=== PATIENT | female | born 1955 | race Caucasian/White ===

== ENCOUNTER 2017-11-26 08:27 | Outpatient (CLI) | payer MEDICARE, MEDICAID ==
[~2017-11-26 08:27] MED LIST: NICO-687 TD; POTA20TA19 PO; SERT25TA PO
[2017-11-26] MEDS ORDERED: iohexol 300mg/ml 100ml inj. ONE (08:40)
== END 2017-11-26 23:59 | disposition home or self-care (01) ==
LOC: 64 CT 08:27
PROVIDERS: ATTEND Surgery
DX: R18.8 Other ascites (principal); M48.54XD Collapsed vertebra, not elsewhere classified, thoracic region, subsequent encounter for fracture with routine healing; M51.37 Other intervertebral disc degeneration, lumbosacral region; M48.07 Spinal stenosis, lumbosacral region; I10 Essential (primary) hypertension; Z90.49 Acquired absence of other specified parts of digestive tract; Z90.710 Acquired absence of both cervix and uterus; Z87.891 Personal history of nicotine dependence
CPT/HCPCS: 74177; J7030; Q9967

== ENCOUNTER 2017-12-11 06:31 | Day surgery (SDC) | payer MEDICARE, MEDICAID ==
[~2017-12-11] VITALS: Ht 162.6 cm; Wt 68.1 kg
[2017-12-11 06:54] VITALS: BP 157/90
[2017-12-11] MEDS ORDERED: METR500T PO (07:03)
[2017-12-11] MEDS ORDERED: SERT25TA PO (07:03)
[2017-12-11] MEDS ORDERED: SIMV20TA5 PO (07:03)
[2017-12-11] MEDS ORDERED: LEVO25TA2 PO (07:03)
[2017-12-11] MEDS ORDERED: LIDOcaine 1%/PF 5ML 10 MG/ML VIAL IJ ONE (07:10)
[2017-12-11] MEDS ORDERED: LIDOcaine 1% (10mg/ml)w/preservative injection 20ml MDV SQ ONE (07:25)
[2017-12-11 09:00] VITALS: BP 136/84
== END 2017-12-11 09:12 | disposition home or self-care (01) ==
LOC: SSTAY O 06:31
PROVIDERS: ATTEND Radiology Diagnostic Radiology
DX: L76.34 Postprocedural seroma of skin and subcutaneous tissue following other procedure (principal); Y83.8 Other surgical procedures as the cause of abnormal reaction of the patient, or of later complication, without mention of misadventure at the time of the procedure; E03.9 Hypothyroidism, unspecified; E78.5 Hyperlipidemia, unspecified; I10 Essential (primary) hypertension; M19.90 Unspecified osteoarthritis, unspecified site; F32.9 Major depressive disorder, single episode, unspecified; Z93.3 Colostomy status; Z85.6 Personal history of leukemia; Z92.21 Personal history of antineoplastic chemotherapy; Z90.49 Acquired absence of other specified parts of digestive tract; Z90.710 Acquired absence of both cervix and uterus; Z87.891 Personal history of nicotine dependence; Z87.01 Personal history of pneumonia (recurrent); Z79.899 Other long term (current) drug therapy; Z98.890 Other specified postprocedural states; Z82.49 Family history of ischemic heart disease and other diseases of the circulatory system; Z83.3 Family history of diabetes mellitus; Z81.8 Family history of other mental and behavioral disorders
CPT/HCPCS: 10030; 87070; A6257; A6402; J2001

== ENCOUNTER 2018-06-30 10:09 | Emergency (ER) | payer MEDICARE, MEDICAID ==
[~2018-06-30] VITALS: Ht 162.6 cm; Wt 70.5 kg
[~2018-06-30 10:09] MED LIST changes: +BACDS PO; +HYDR-4383 PO; +LEVO25TA2 PO; +METR500T PO; -NICO-687 TD; -POTA20TA19 PO; +SIMV20TA5 PO
[2018-06-30 10:11] VITALS: BP 146/82
[2018-06-30 11:03] LABS: BASOPHILS % (AUTO) 0.4 % (0-1); EOSINOPHILS % (AUTO) 0.9 % (0-6); HEMATOCRIT 39.7 % (35.0-45.0); HEMOGLOBIN 13.4 g/dl (12.0-16.0); LYMPHOCYTES # (AUTO) 1.1 X10'3 (1.1-4.8); LYMPHOCYTES % (AUTO) 20.7 % (21-51); MEAN CORPUSCULAR HEMOGLOBIN 32.6 PG (27.0-31.0); MEAN CORPUSCULAR HGB CONC 33.8 g/dL (33.0-36.5); MEAN CORPUSCULAR VOLUME 96.5 FL (78-98); MONOCYTES # (AUTO) 0.4 X10'3 (0-0.9); NEUTROPHILS # (AUTO) 3.6 X10'3 (1.8-7.7); PLATELET COUNT 252 X10'3 (140-440); RED BLOOD COUNT 4.11 X10'6 (4.20-5.60); RED CELL DISTRIBUTION WIDTH 16.2 % (11.5-14.5); WHITE BLOOD COUNT 5.1 X10'3 (4.5-11.0)
[2018-06-30 11:16] LABS: ALANINE AMINOTRANSFERASE 15 U/L (12-78); ALBUMIN 3.8 G/DL (3.4-5.0); ALBUMIN/GLOBULIN RATIO 1.2 (1.1-1.5); ALKALINE PHOSPHATASE 76 IU/L (46-116); ANION GAP 10 (8-16); ASPARTATE AMINO TRANSFERASE 11 U/L (10-37); BILIRUBIN,TOTAL 0.2 MG/DL (0.1-1.0); BLOOD UREA NITROGEN 10 MG/DL (7-18); CALCIUM 9.3 MG/DL (8.5-10.1); CHLORIDE 107 MMOL/L (99-107); CREATININE 0.77 MG/DL (0.40-0.90); GLUCOSE 126 MG/DL (70-104); POTASSIUM 3.2 MMOL/L (3.5-5.1); SODIUM 143 MMOL/L (135-145); TOTAL CARBON DIOXIDE 25.7 MMOL/L (24-32); TOTAL PROTEIN 6.9 G/DL (6.4-8.2); eGFR 76 ML/MIN
[2018-06-30] MEDS ORDERED: GABA300C PO (11:43)
[2018-07-01 07:22] LABS: RPR Non Reactive (Non Reactive)
== END 2018-06-30 12:25 | disposition home or self-care (01) ==
LOC: ER 10:10
DX: B02.29 Other postherpetic nervous system involvement (principal); I10 Essential (primary) hypertension; E78.00 Pure hypercholesterolemia, unspecified; Z90.710 Acquired absence of both cervix and uterus
CPT/HCPCS: 36415; 80053; 85025; 86592; 99283